=== PATIENT | female | born 1970 | race Caucasian/White ===

== ENCOUNTER 2016-04-30 18:38 | Emergency (ER) | payer OTHER ==
[~2016-04-30] VITALS: Ht 172.7 cm; Wt 90.9 kg
[2016-04-30 18:47] VITALS: BP 110/67; PULSE 113; RESP 20; O2SAT 96
[2016-04-30 19:30] LABS: APPEARANCE,URINE HAZY (CLEAR,HAZY); COLOR,URINE DARK YELLOW (YELLOW); OCCULT BLOOD,URINE MODERATE (NEGATIVE); UROBILINOGEN,URINE NORMAL (NORMAL)
[2016-04-30 19:47] LABS: BASOPHILS % (AUTO) 1.9 % (0-3); EOSINOPHILS % (AUTO) 0.4 % (0-5); MONOCYTES % (AUTO) 10.7 % (4-12); Mean Corpuscular Hemoglobin 28.2 pg (27.0-35.0); Mean Corpuscular Volume 85.2 fL (81-100); NEUTROPHILS % (AUTO) 77.1 % (40-74); Platelet Count 340 bil/L (150-400)
[2016-04-30 20:09] LABS: Magnesium 1.9 mg/dL (1.6-2.6)
--- NOTE | 2016-04-30 20:50 | DRSVH ---
PROCEDURE: X-RAY CHEST, TWO VIEWS ([id number]) INDICATIONS: shortness of breath , fever TECHNIQUE: 2 views of the chest were acquired. COMPARISON: None. FINDINGS: Surgical changes and devices: None. Lungs and pleura: No pleural effusions or pneumothorax. Lungs are clear. Mediastinum: Mediastinal contours are normal. Heart size is normal. Bones and chest wall: No suspicious bony abnormalities. Soft tissues appear unremarkable. IMPRESSION: No acute cardiopulmonary disease process. Dictated by: Christiana Ham MD, PhD on 04/30/2016 at 20:49 Approved by: Christiana Ham MD, PhD on 04/30/2016 at 20:49
== END 2016-04-30 21:47 | disposition left against medical advice (07) ==
LOC: SED 18:38
DX: Z53.21 Procedure and treatment not carried out due to patient leaving prior to being seen by health care provider (principal)